=== PATIENT | male | born 1945 | race African-American/Black ===

== ENCOUNTER 2019-02-13 06:33 | Emergency (ER) | payer MEDICARE, MEDICAID ==
[~2019-02-13] VITALS: Ht 177.8 cm; Wt 88.6 kg
[~2019-02-13 06:33] MED LIST: AMLO10TA55; CARV3 PO; DSS100 PO; HYDR25TA PO; LISI-661 PO; LORA10TA7 PO
[2019-02-13] MEDS ORDERED: OXYC-43 PO (06:56)
[2019-02-13 07:46] VITALS: BP 162/91
== END 2019-02-13 08:28 | disposition home or self-care (01) ==
LOC: EMS 06:33
DX: J40 Bronchitis, not specified as acute or chronic (principal); I10 Essential (primary) hypertension

== ENCOUNTER → 2019-08-08 | Outpatient (CLI) | payer MEDICARE, MEDICAID ==
[~2019-08-08] MED LIST changes: -AMLO10TA55; -CARV3 PO; -DSS100 PO; -HYDR25TA PO; -LISI-661 PO; -LORA10TA7 PO; +OXYC-43 PO
== END | disposition home or self-care (01) ==
LOC: RADPV 11:17
PROVIDERS: ATTEND Internal Medicine Geriatric Medicine
DX: M25.561 Pain in right knee (principal); M79.604 Pain in right leg

== ENCOUNTER 2021-02-06 08:52 | Emergency (ER) | payer MEDICARE, MEDICAID ==
[~2021-02-06] VITALS: Ht 177.8 cm; Wt 86.4 kg
[2021-02-06 11:54] VITALS: BP 134/84
== END 2021-02-06 12:26 | disposition home or self-care (01) ==
LOC: EMS 08:52
DX: S92.512A Displaced fracture of proximal phalanx of left lesser toe(s), initial encounter for closed fracture (principal); X58.XXXA Exposure to other specified factors, initial encounter; Y93.01 Activity, walking, marching and hiking; Y92.89 Other specified places as the place of occurrence of the external cause; Y99.8 Other external cause status
CPT/HCPCS: 29515; 99283

== ENCOUNTER → 2021-07-07 | Outpatient (CLI) | payer MEDICARE, MEDICAID ==
[2021-07-07 10:15] LABS: ANION GAP 9 mmol/L (8-16); CARBON DIOXIDE 26 mmol/L (22-29); CHLORIDE 106 mmol/L (98-107); CREATININE 1.34 mg/dL (0.60-1.30); GLOMERULAR FILTR. RATE CALC > 60 mL/min (>60); GLUCOSE,RANDOM 88 mg/dL (70-110); POTASSIUM 3.9 mmol/L (3.5-5.1); SODIUM SERUM 141 mmol/L (136-145); UREA NITROGEN, BLOOD 14 mg/dL (7-18)
[2021-07-09 07:07] LABS: ALBUMIN URINE (ELP) 55.7 %
== END | disposition home or self-care (01) ==
LOC: LABMN 09:36
PROVIDERS: ATTEND Internal Medicine Nephrology
DX: N18.2 Chronic kidney disease, stage 2 (mild) (principal)
CPT/HCPCS: 80048; 82570; 84156; 84166

== ENCOUNTER 2024-01-11 14:36 | Emergency (ER) | payer MEDICARE, MEDICAID ==
[~2024-01-11] VITALS: Ht 177.8 cm; Wt 84.1 kg
[2024-01-11] MEDS ORDERED: AMLO10TA55 PO (14:40)
[2024-01-11] MEDS ORDERED: LISI40TA9 PO (14:40)
[2024-01-11] MEDS ORDERED: OXYC-618 PO (14:40)
[2024-01-11 14:43] VITALS: BP 144/66; PULSE 66; RESP 18; TEMP 99; O2SAT 98
[2024-01-11 15:02] LABS: COVID AG,FIA SOURCE NASAL SWAB
[2024-01-11 15:30] LABS: SARS-COV2 (COVID) ANTIGEN,FIA Negative (Negative)
[2024-01-11 15:31] LABS: INFLUENZA TYPE B NEGATIVE FOR TYPE B (NEGATIVE)
[2024-01-11 15:32] LABS: BASOPHILS % (AUTO) 0.5 % (0.0-2.0); EOSINOPHILS % (AUTO) 2.6 % (1.0-6.0); HEMATOCRIT 38.2 % (41-53); HEMOGLOBIN 12.4 g/dL (13.5-17.5); LYMPHOCYTES # (AUTO) 5.8 K/uL (1.0-4.8); MEAN CORPUSCULAR HEMOGLOBIN 28.6 pg (26.0-34.0); MEAN CORPUSCULAR HGB CONC 32.5 G/dL (31.0-37.0); MEAN CORPUSCULAR VOLUME 88 fL (80-100); MONOCYTES # (AUTO) 1.1 K/uL (0.1-1.0); MONOCYTES % (AUTO) 12.9 % (2.0-9.0); NEUTROPHILS # (AUTO) 1.4 K/uL (1.8-7.7); PLATELET COUNT (AUTO) 170 K/uL (150-450); RED BLOOD CELL COUNT(AUTO) 4.34 MIL/uL (4.50-5.90); RED CELL DISTRIBUTION WIDTH 14.2 % (11.5-14.5); WHITE BLOOD COUNT (AUTO) 8.6 K/uL (4.5-11.0)
[2024-01-11 15:32] LABS: INFLUENZA TYPE A POSITIVE FOR TYPE A (NEGATIVE)
[2024-01-11 15:41] LABS: CALCIUM, TOTAL 8.5 mg/dL (8.8-10.5); CREATININE 1.77 mg/dL (0.60-1.30); POTASSIUM 3.4 mmol/L (3.5-5.1)
[2024-01-11 15:49] LABS: RBC MORPHOLOGY COMMENT NORMAL RBC MORPH
[2024-01-11] MEDS: OSELTAMIVIR PHOSPHATE 75 MG CAPSULE PO ONE (17:49)
[2024-01-11] MEDS: ACETAMINOPHEN 325 MG TABLET PO ONE (17:50)
[2024-01-11] MEDS ORDERED: OSEL30CA PO (17:59)
== END 2024-01-11 18:06 | disposition home or self-care (01) ==
LOC: EMS 14:36
DX: J10.1 Influenza due to other identified influenza virus with other respiratory manifestations (principal); I10 Essential (primary) hypertension; M19.90 Unspecified osteoarthritis, unspecified site; Z98.890 Other specified postprocedural states; Z20.822 Contact with and (suspected) exposure to COVID-19
CPT/HCPCS: 80048; 83690; 85025; 87804; 99283

== ENCOUNTER 2025-01-22 11:50 | Emergency (ER) | payer MEDICARE, OTHER ==
[~2025-01-22] VITALS: Ht 177.8 cm; Wt 84.0 kg
[~2025-01-22 11:50] MED LIST changes: +AMLO10TA55 PO; +LISI-1024 PO; +OSEL30CA PO; -OXYC-43 PO; +OXYC-618 PO
[2025-01-22 12:18] VITALS: TEMP 97.5
[2025-01-22 13:05] LABS: PLATELET COUNT (AUTO) 169 K/uL (150-450); RED BLOOD CELL COUNT(AUTO) 4.54 MIL/uL (4.50-5.90); RED CELL DISTRIBUTION WIDTH 14.5 % (11.5-14.5); WHITE BLOOD COUNT (AUTO) 6.0 K/uL (4.5-11.0)
[2025-01-22 13:16] LABS: CALCIUM, TOTAL 8.8 mg/dL (8.8-10.5); CREATININE 1.7 mg/dL (0.60-1.30); GLOMERULAR FILTR. RATE CALC 48.0 mL/min (>60); GLUCOSE,RANDOM 90.0 mg/dL (70-110); SODIUM SERUM 141.0 mmol/L (136-145); UREA NITROGEN, BLOOD 18.0 mg/dL (7-18)
[2025-01-22 14:42] LABS: TROPONIN I-HIGH SENSITIVITY 10 ng/L (<76)
[2025-01-22 15:40] LABS: ASPARTATE AMINOTRANSFERASE 38.0 U/L (15-37); TOTAL PROTEIN, SERUM 8.9 g/dL (6.4-8.2)
[2025-01-22] MEDS: SODIUM CHLORIDE 0.9% 1,000 ML IV ONE (16:13)
[2025-01-22 16:21] LABS: APPEARANCE,URINE CLEAR (CLEAR); GLUCOSE, URINE (UA) NEGATIVE (NEGATIVE); LEUKOCYTE ESTERASE ,URINE NEGATIVE (NEGATIVE); NITRATE,URINE NEGATIVE (NEGATIVE); OCCULT BLOOD,URINE NEGATIVE (NEGATIVE); SPECIFIC GRAVITIY, URINE 1.012 (1.003-1.030)
[2025-01-22 16:30] LABS: SULFOSALICYLIC ACID,URINE 2+ (Negative)
[2025-01-22 16:31] LABS: SQUAMOUS EPITHELIAL CELL,UR Rare /LPF (None Seen)
[2025-01-22] MEDS ORDERED: POLY119P3 PO (22:26)
[2025-01-22 22:58] VITALS: BP 131/73; PULSE 68; RESP 17; O2SAT 96
== END 2025-01-22 23:06 | disposition home or self-care (01) ==
LOC: EMS 11:51
DX: K59.00 Constipation, unspecified (principal); R10.31 Right lower quadrant pain; I10 Essential (primary) hypertension; M19.90 Unspecified osteoarthritis, unspecified site; Z98.890 Other specified postprocedural states; Z79.899 Other long term (current) drug therapy
CPT/HCPCS: 99285; 96361; 74176; 96360; 76705; 80048; 80076; 81001; 83690; 84484; 85025; 36415; 74018; 93005; J7030; 81002; 81003